=== PATIENT | male | born 1975 | race Two or more races ===

== ENCOUNTER 2018-12-24 15:43 | Emergency (ER) | payer OTHER ==
[~2018-12-24] VITALS: Ht 177.8 cm; Wt 83.4 kg
[2018-12-24 16:05] VITALS: BP 124/85
--- NOTE | 2018-12-24 16:18 | NUR ---
FROM LOBBY TO ROOM AT THIS TIME
== END 2018-12-24 17:25 | disposition home or self-care (01) ==
LOC: ED 17:00
DX: G51.0 Bell's palsy (principal)
CPT/HCPCS: 99283; J7512